=== PATIENT | male | born 1990 | race Caucasian/White ===

== ENCOUNTER 2022-11-29 14:15 | Outpatient (CLI) | payer BC ==
[~2022-11-29 14:15] MED LIST: Magnevist 469MG/ML 20 ML VIAL ONE
== END 2022-11-29 14:16 | disposition home or self-care (01) ==
LOC: CSHMRI 14:15
PROVIDERS: ATTEND Neurological Surgery
DX: M51.26 Other intervertebral disc displacement, lumbar region (principal); M47.816 Spondylosis without myelopathy or radiculopathy, lumbar region; M43.16 Spondylolisthesis, lumbar region; M51.36 Other intervertebral disc degeneration, lumbar region; M48.061 Spinal stenosis, lumbar region without neurogenic claudication
CPT/HCPCS: 72120; 72158; A9579